=== PATIENT | female | born 1955 | race Caucasian/White ===

== ENCOUNTER 2016-12-01 13:17 | Emergency (ER) | payer OTHER ==
--- NOTE | 2016-12-01 14:21 | ER Document Report ---
HPI - HPI Patient complains to provider of: medication Onset: Last week Onset/Duration: Gradual Quality of pain: No pain Severity: Mild Pain Level: 1 Associated Symptoms: Other - out of adderall Similar symptoms previously: Yes Recently seen / treated by doctor: No - ROS ROS below otherwise negative: Yes - CONSTITUTIONAL Constitutional: DENIES: Fever, Chills - EENT EENT: DENIES: Sore Throat, Ear Pain, Nasal Drainage-Clear, Nasal Drainage- Purulent, Congestion, Eye problems - NEURO Neurology: DENIES: Headache, Weakness, Vision blurred, Dizzinesss / Vertigo - CARDIOVASCULAR Cardiovascular: DENIES: Chest pain - RESPIRATORY Respiratory: DENIES: Trouble Breathing, Coughing - GASTROINTESTINAL Gastrointestinal: DENIES: Abdominal Pain, Nausea, Patient vomiting, Diarrhea, Constipation, Black / Bloody Stools - URINARY Urinary: DENIES: Dysuria, Urgency, Frequency - REPRODUCTIVE Reproductive: DENIES: :, Postmenopausal, Abnormal bleeding / discharge - MUSCULOSKELETAL Musculoskeletal: DENIES: Extremity pain, Back Pain, Neck Pain, Swelling - DERM Skin Color: Normal Skin Problems: None Past Medical History - General Information source: Patient - Social History Smoking Status: Former Smoker Cigarette use (# per day): No Chew tobacco use (# tins/day): No Smoking Education Provided: No Frequency of alcohol use: None Drug Abuse: None Occupation: personal lines account executive Lives with: Parents Family History: Reviewed & Not Pertinent Patient has suicidal ideation: No Patient has homicidal ideation: No - Past Medical History Cardiac Medical History: Reports: None Pulmonary Medical History: Reports: Hx Bronchitis EENT Medical History: Reports: None Neurological Medical History: Reports: Hx Migraine Renal/ Medical History: Denies: Hx Peritoneal Dialysis Psychiatric Medical History: Reports: Hx Attention Deficit Hyperactivity Disorder Surgical Hx: Negative - Immunizations Hx Diphtheria, Pertussis, Tetanus Vaccination: Yes Vertical Provider Document - CONSTITUTIONAL Agree With Documented VS: Yes - Bp 169/109 Exam Limitations: No Limitations General Appearance: WD/WN, No Apparent Distress - INFECTION CONTROL TRAVEL OUTSIDE OF THE [place] IN LAST 30 DAYS: No - HEENT HEENT: Atraumatic, Normal ENT Exam, Normocephalic, PERRLA - NECK Neck: Normal Inspection, Supple - RESPIRATORY Respiratory: Breath Sounds Normal, No Respiratory Distress O2 Sat by Pulse Oximetry: 99 - CARDIOVASCULAR Cardiovascular: Regular Rate, Regular Rhythm - GI/ABDOMEN Gastrointestinal: Abdomen Soft, Abdomen Non-Tender - BACK Back: Normal Inspection - MUSCULOSKELETAL/EXTREMETIES Musculoskeletal/Extremeties: MAEW, FROM, Non-Tender - NEURO Level of Consciousness: Awake, Alert, Agitated Motor/Sensory: No Motor Deficit, No Sensory Deficit - DERM Integumentary: Warm, Dry, No Rash Course - Re-evaluation Re-evalutation: 12/01/16 21:11 Discussed assessment and request with Dr. Viera he stated that it would be okay to give her 6 of the Adderall 30s until she can find a primary doctor to follow-up with. Patient was written a prescription for 6 Adderall 30 1 daily. - Vital Signs Vital signs: Temp Pulse Resp BP Pulse Ox 97.7 F 83 22 H 169/109 H 99 12/01/16 13:43 12/01/16 13:43 12/01/16 13:43 12/01/16 13:43 12/01/16 13:43 Discharge - Discharge Clinical Impression: out of adderall Condition: Stable Disposition: HOME, SELF-CARE Instructions: Family Physicians / Practices Additional Instructions: You was seen today because you state you have run out of your Adderall and you cannot find a provider to refill your Adderall. We have discussed this with the space planner and you. She will work on trying to get to a primary doctor. I will write you for 6 of the Adderall and you need to make these spaced out and told you can get into see a primary doctor. FOLLOW-UP CARE: If you have been referred to a physician for follow-up care, call the physician s office for an appointment as you were instructed or within the next two days. If you experience worsening or a significant change in your symptoms, notify the physician immediately or return to the Emergency Department at any time for re-evaluation. Prescriptions: Dextroamphetamine/Amphetamine [Adderall 30 mg Tablet] 30 mg PO DAILY #6 tablet Forms: Elevated Blood Pressure
[2016-12-01 14:34] VITALS: BP 154/106
== END 2016-12-01 14:32 | disposition home or self-care (01) ==
LOC: ER 13:17
DX: Z76.0 Encounter for issue of repeat prescription (principal); Z87.891 Personal history of nicotine dependence; Z79.899 Other long term (current) drug therapy
CPT/HCPCS: 99283

== ENCOUNTER 2017-05-31 05:59 | Day surgery (SDC) | payer OTHER ==
[2017-05-24 10:42] LABS: APPEARANCE,URINE SLIGHTLY-CLOUDY; BILIRUBIN,URINE NEGATIVE (NEGATIVE); COLOR,URINE YELLOW; GLUCOSE, URINE NEGATIVE (NEGATIVE); KETONES,URINE NEGATIVE (NEGATIVE); LEUKOCYTE ESTERASE,URINE SMALL (NEGATIVE); NITRITE,URINE NEGATIVE (NEGATIVE); PROTEIN,URINE NEGATIVE (NEGATIVE); UROBILINOGEN,URINE NEGATIVE mg/dL (<2.0)
[2017-05-24 10:47] LABS: ABSOLUTE EOSINOPHILS # (AUTO) 0.1 10^3/uL (0.0-0.6); ABSOLUTE MONOCYTES (AUTO) 0.5 10^3/uL (0.1-1.4); ABSOLUTE NEUT (AUTO) 3.7 10^3/uL (1.7-8.2); BASOPHILS % (AUTO) 0.5 % (0-2); EOSINOPHILS % (AUTO) 1.5 % (0-6); HEMATOCRIT 39.7 % (36.0-47.0); HEMOGLOBIN 12.9 g/dL (12.0-15.5); LYMPHOCYTES % (AUTO) 31.7 % (13-45); MEAN CORPUSCULAR HEMOGLOBIN 30.1 pg (27.0-33.4); MEAN CORPUSCULAR HGB CONC 32.6 g/dL (32.0-36.0); MEAN CORPUSCULAR VOLUME 92 fl (80-97); PLATELET COUNT 268 10^3/uL (150-450); RED CELL DISTRIBUTION WIDTH 14.5 % (11.5-14.0); SEGMENTED NEUTROPHILS % (AUTO) 58.3 % (42-78); TOTAL CELLS COUNTED % (AUTO) 100 %; WHITE BLOOD COUNT 6.4 10^3/uL (4.0-10.5)
[2017-05-24 11:12] LABS: ANION GAP 9 (5-19); BLOOD UREA NITROGEN 14 mg/dL (7-20); CALCIUM 8.9 mg/dL (8.4-10.2); CARBON DIOXIDE 27 mmol/L (22-30); CHLORIDE 105 mmol/L (98-107); GLUCOSE 100 mg/dL (75-110); POTASSIUM 4.3 mmol/L (3.6-5.0); SODIUM 141.4 mmol/L (137-145)
--- NOTE | 2017-05-24 13:04 | EKG REPORT ---
SEVERITY:- NORMAL ECG - SINUS RHYTHM : Confirmed by: Napoleon Andrade MD 24-May-2017 13:03:33
[~2017-05-31 05:59] MED LIST: BUPIVACAINE HCL 0.5 % INJ/PF 30 ML SDV ONE; CEFAZOLIN 2 GM/D5W RTU 2 GM/50 ML RTUPB IV SCH; LACTATED RINGERS 1000 ML IV PRN; LIDOCAINE 0.5% INJ-PF (5 MG/ML) 50 ML SDV SUBCUT PRN
[2017-05-31] MEDS ORDERED: LIDOCAINE 2% INJ-PF (20 MG/ML) 10 ML AMPUL ONE (06:32)
[2017-05-31] MEDS ORDERED: FENTANYL CITRATE INJ/PF 100 MCG/2 ML AMPUL ONE ×2 (06:32)
[2017-05-31] MEDS ORDERED: DEXAMETHASONE SOD PHOSPHATE INJ 4 MG/1 ML VIAL ONE (06:33)
[2017-05-31] MEDS ORDERED: ONDANSETRON HCL INJ/PF 4 MG/2 ML SDV ONE (06:33)
[2017-05-31] MEDS ORDERED: PROPOFOL INJ 200 MG/20 ML VIAL IV ONE (06:33)
[2017-05-31] MEDS ORDERED: MIDAZOLAM 2 MG/2 ML INJ ONE (06:33)
[2017-05-31] MEDS ORDERED: ACETAMINOPHEN 0 ML IV ONE (06:33)
[2017-05-31] MEDS ORDERED: ACETAMINOPHEN 100 ML IV ONE (08:22)
[2017-05-31] MEDS ORDERED: MEPERIDINE HCL/PF INJ 25 MG/1 ML DISP.SYRIN IV PRN (08:40)
[2017-05-31] MEDS ORDERED: DIPHENHYDRAMINE HCL 50 MG/ML VIAL IV PRN (08:40)
[2017-05-31] MEDS ORDERED: MORPHINE SULFATE 10 MG/ML INJ IV PRN ×2 (08:40→09:48)
[2017-05-31] MEDS ORDERED: OXYCODONE-ACETAMINOPHEN 5-325 MG TABLET PO PRN ×3 (08:40→09:48)
[2017-05-31] MEDS ORDERED: ONDANSETRON HCL INJ/PF 4 MG/2 ML SDV IV PRN ×2 (08:40→09:48)
[2017-05-31] MEDS ORDERED: FENTANYL CITRATE INJ/PF 100 MCG/2 ML AMPUL IV PRN ×3 (08:40)
[2017-05-31] MEDS ORDERED: PROMETHAZINE HCL INJ 25 MG/1 ML VIAL IV PRN (08:40)
--- NOTE | 2017-05-31 09:45 | Operative Report ---
Operative Report DATE OF SURGERY: 05/31/17 PREOPERATIVE DIAGNOSIS: Left Thumb CMC Arthritis POSTOPERATIVE DIAGNOSIS: Same OPERATION: Left Thumb CMC Arthroplasty w/ Trapezial Resection, Ligament Reconstruction Tendon Interposition SURGEON: DARRELL TAYLOR 1ST BULLDOZER/LOADER/COMPACTOR/SCRAPER: JUDY LEE ANESTHESIA: GA COMPLICATIONS: None ESTIMATED BLOOD LOSS: <Minimal PROCEDURE: Indication for above procedure: 61-year-old female with long-standing history of left thumb arthritis and pain. We attempted conservative measures including anti-inflammatories, bracing and injections without resolution of patient's symptoms. At that point we discussed treatment options including operative versus nonoperative intervention. Risks and benefits were explained patient verbalized understanding consented for the procedure. Procedure In Detail: Patient was seen and evaluated in the preoperative holding area. The LEFT upper extremity was initialized and marked. Patient received 2g of Ancef IV for bacterial prophylaxis. Patient was taken back to the operative room where transferred to the operative table and placed under general anesthesia. Once they were adequately anesthetized and a nonsterile tourniquet was placed on the upper extremity. A surgical team debriefing was performed ensuring all instrumentation was available, the surgical procedure was discussed with possible concerns reviewed. The upper extremity was prepped with chlorhexidine and alcohol and draped in a sterile fashion. A timeout was done identifying correct patient, procedure and extremity everyone in attendance agree with this and verbalized no concerns. The extremity was exsanguinated the tourniquet was inflated to 200 mmHg. A longitudinal skin incision was made in line with the first dorsal compartment. I then meticulously dissected down to the interval of the APL and EPB identifying the superficial radial nerve branches which were retracted. I then identified the radial artery which was protected throughout the entirety of the case with a Sumner elevator. A T-shaped capsulotomy was made at the CMC joint of the thumb. A freer elevator was used to dariana out the CMC joint, fluoroscopy confirmed the thumb cmc joint placement. The capsule was released off of the trapezium circumferentially. The FCR insertion volarly was protected. Using a rongeur the trapezium was excised as one unit. I then removed any residual loose bodies and bone fragments. I then inspected the STT joint. There was no advanced degenerative changes of the STT joint. I then turned my attention to harvesting the FCR tendon. The FCR was identified and 2 transverse incisions were made. The entire FCR tendon was harvested. The tendon was then retrieved from the CMC joint of the thumb. The base of the thumb metacarpal was rongeured to allow for cancellous tendon healing. I tenolysed the FCR up to its insertion at the second metacarpal. Using a rongeur the 1st metacarpal base osteophytes were removed. Bone tunnels were created with the use of #1 PDS suture in a horizontal mattress fashion while my catalog library assistant held distraction at the thumb CMC joint. Once this was complete excellent stability of the CMC joint was achieved without evidence of subsidence. I fixated the remaining FCR tendon to the FCR tendon that remained attached the to second metacarpal with 3-0 Vicryl forming an anchovy. Fluoroscopy was then obtained which demonstrated good stability of my CMC arthroplasty without evidence of subsidence at rest or with stress. The wound was then copiously irrigated with normal saline. A peripheral vasculature is carefully coagulated with bipolar cautery The capsule was closed with interrupted 3-0 vicryl. Superficial radial nerve was once again inspected and protected during skin closure. Skin was closed with 4-0 Monocryl subcuticular suture reinforced with Dermabond and Steri-Strips.. The patient was placed in a thumb spica splint. Sponge counts, instrument counts and needle counts were correct. 20 mL of 0.5 marcaine was injected for postoperative pain control. Patient was extubated and transferred to the operative stretcher. There was no intraoperative complications patient tolerated procedure well with stable to PACU. Postoperative plan: Patient will continue the splint for 2 weeks. Patient will then be transitioned to a cast for an additional 2 weeks. They will then begin occupational therapy at 4 weeks and will be fitted for a thermoplastic splint at that time.
--- NOTE | 2017-05-31 09:45 | Discharge Summary ---
Discharge Summary (SDC) - Discharge Final Diagnosis: Left Thumb CMC Arthroplasty Date of Surgery: 05/31/17 Discharge Date: 05/31/17 Condition: Good Treatment or Instructions: Schedule Follow Up w/ Dr. Julio Chen @ [facility] to be seen in 10-14 days or as scheduled [place]: [place]: [place]: Ice and elevate Keep splint clean/dry/intact. If your fingers become numb please unwrap the Karl wrap but leave the splint in place, if the sensation does not return within 30 minutes please return to the emergency department. May begin finger range of motion attempting to make full fist. Please use ibuprofen (Motrin or Advil) 600-800 mg every 8 hours as needed for pain or fever DO NOT TAKE w/ TORADOL may use once TORADOL complete. You may also use acetaminophen (Tylenol) 1000 mg every 4-6 hours as needed for pain or fever. Please be aware that many medications contain acetaminophen, do not exceed a total of 1000 mg of acetaminophen every 6 hours. If ibuprofen and acetaminophen are not sufficient for your pain you may take the Percocet/[place]. Please be aware that the Percocet/[place] does contain Tylenol. Stool softener of choice when on pain medication. Prescriptions: Ketorolac Tromethamine [Toradol 10 mg Tablet] 10 mg PO Q8HP PRN #10 tablet PRN Reason: Oxycodone HCl/Acetaminophen [Percocet 5-325 mg Tablet] 1 - 2 tab PO ASDIR PRN # 40 tablet PRN Reason: Referrals: [facility] PA-C [Primary Care Provider] - Respiratory Treatments at Home: Deep Breathing/Coughing Discharge Activity: No Lifting Over 10 Pounds, No Lifting/Push/Pulling Report the Following to Your Physician Immediately: Fever over 101 Degrees, Unusual Bleeding, Redness, Swelling, Warmth, Increased Soreness
[2017-05-31] MEDS: FENTANYL CITRATE INJ/PF 100 MCG/2 ML AMPUL ONE ×3 (09:47→10:07)
[2017-05-31] MEDS ORDERED: RINGERS SOLUTION,LACTATED 1,000 ML IV PRN (09:48)
--- NOTE | 2017-05-31 10:57 | RADIOLOGY REPORT (SQ) ---
EXAM DESCRIPTION: NO CHG FLUORO; WRIST LEFT 3 VIEWS COMPLETED DATE/TIME: 05/31/2017 9:56 am REASON FOR STUDY: LT THUMB/CARPOMETACARPAL ARTHROPLASTY ASST WITH FLUORO IN OR M18.12 UNIL PRIMARY OSTEOARTH OF FIRST CARPOMETACARP JOINT, COMPARISON: None. FLUOROSCOPY TIME: 6 seconds 8 images saved to PACS. TECHNIQUE: Intra-operative images acquired during surgical procedure to evaluate progress. NUMBER OF IMAGES: 8 LIMITATIONS: None. FINDINGS: Surgical probe overlies the 1st carpometacarpal joint. IMPRESSION: IMAGE(S) OBTAINED DURING PROCEDURE. COMMENT: Quality ID 145: Final reports for procedures using fluoroscopy that document radiation exp osure indices, or exposure time and number of fluorographic images (if radiation exposure indices are not available) Please consult full operative report of the attending physician for description of the procedure. TECHNICAL DOCUMENTATION: JOB ID: [id number] [email or web address]- All Rights Reserved Reading location - IP/workstation name: [email or web address]
--- NOTE | 2017-05-31 10:57 | RADIOLOGY REPORT (SQ) ---
EXAM DESCRIPTION: NO CHG FLUORO; WRIST LEFT 3 VIEWS COMPLETED DATE/TIME: 05/31/2017 9:56 am REASON FOR STUDY: LT THUMB/CARPOMETACARPAL ARTHROPLASTY ASST WITH FLUORO IN OR M18.12 UNIL PRIMARY OSTEOARTH OF FIRST CARPOMETACARP JOINT, COMPARISON: None. FLUOROSCOPY TIME: 6 seconds 8 images saved to PACS. TECHNIQUE: Intra-operative images acquired during surgical procedure to evaluate progress. NUMBER OF IMAGES: 8 LIMITATIONS: None. FINDINGS: Surgical probe overlies the 1st carpometacarpal joint. IMPRESSION: IMAGE(S) OBTAINED DURING PROCEDURE. COMMENT: Quality ID 145: Final reports for procedures using fluoroscopy that document radiation exp osure indices, or exposure time and number of fluorographic images (if radiation exposure indices are not available) Please consult full operative report of the attending physician for description of the procedure. TECHNICAL DOCUMENTATION: JOB ID: [id number] [employer]- All Rights Reserved Reading location - IP/workstation name: [facility]
[2017-05-31] MEDS ORDERED: SUCCINYLCHOLINE CHLORIDE INJ 200 MG/10 ML VIAL ONE (12:13)
[2017-05-31 12:46] VITALS: BP 141/88
== END 2017-05-31 12:20 | disposition home or self-care (01) ==
LOC: OROUT 05:59
PROVIDERS: ATTEND Orthopaedic Surgery
PROC: 0RQT0ZZ Repair Left Carpometacarpal Joint, Open Approach (ICD-10-PCS; principal; 2017-05-31 08:00)
DX: M18.12 Unilateral primary osteoarthritis of first carpometacarpal joint, left hand (principal); D64.9 Anemia, unspecified; M19.90 Unspecified osteoarthritis, unspecified site; M18.9 Osteoarthritis of first carpometacarpal joint, unspecified; Z79.899 Other long term (current) drug therapy
CPT/HCPCS: 25447; 93005; 36415; 85025; 80048; 81001; 73110; 93010; J2250; J3490 ×2; J1100; J3010; J0330; J2405; J2704; J0690; J0131; 01830

== ENCOUNTER 2018-03-09 02:12 | Emergency (ER) | payer OTHER ==
[2018-03-09] MEDS ORDERED: LIDOCAINE 1%/EPINEPHRINE INJ 20 ML VIAL INJ ONE (02:38)
--- NOTE | 2018-03-09 03:26 | RADIOLOGY REPORT (SQ) ---
EXAM DESCRIPTION: CT HEAD WITHOUT IV CONTRAST COMPLETED DATE/TME: 03/09/2018 02:40 CLINICAL HISTORY: 62 years, Female, trauma. laceration on forehead COMPARISON: None. TECHNIQUE: 269 Images stored on PACS. All CT scanners at this facility use dose modulation, iterative reconstruction, and/or weight based dosing when appropriate to reduce radiation dose to as low as reasonably achievable (ALARA). [facility]: Dose Right [facility]: CareDose [facility]: Dose Right [facility]: Teradose 4D [facility]: Utel LIMITATIONS: None. FINDINGS: Motion artifact significantly limits the exam and degrades image quality. The globes appear intact. As visualized the paranasal sinuses and mastoid air cells are unremarkable. No displaced or depressed skull fracture. Right frontal scalp hematoma noted. Negative for acute intracranial hemorrhage. CT is limited for evaluation of acute infarct. No CT evidence for large or territorial acute infarct. No mass or midline shift. IMPRESSION: Motion artifact. Small right frontal scalp hematoma. TECHNICAL DOCUMENTATION: Quality ID # [id number]: Final reports with documentation of one or more dose reduction techniques (e.g., Automated exposure control, adjustment of the mA and/or kV according to patient size, use of iterative reconstruction technique) copyright 2010 [employer]- All Rights Reserved
--- NOTE | 2018-03-09 04:11 | ER Document Report ---
ED General - General Chief Complaint: Head Injury without LOC Stated Complaint: HEAD LACERATION Time Seen by Provider: 03/09/18 02:33 Notes: Patient is a 62-year-old female who presents after fall at home. She says she slipped and she is wearing socks and slipped on the floor. She does have a history of frequent falls. She says is because she has vertigo but the meclizine does not work. On exam patient obviously has a little bit of slurring of speech and seems very sedated as she keeps falling asleep during her discussion with me. I asked her if she is on any sedating medications and she informs me that tonight she took 2 Xanax 1 mg tablets, and Ambien 10 mg tablet, and 2 cyclobenzaprine tablets. She says she is prescribed these. She says she takes him to try to help her sleep. She says she is only supposed to take one Xanax tablet however it was not falling asleep and therefore took a second tablet. Patient is on any blood thinning medications. She did hit her head. She has a cut above her right eyebrow. She denies any other injuries. She denies neck or back pain. No pain in her extremities. TRAVEL OUTSIDE OF THE [place] IN LAST 30 DAYS: No - Related Data Allergies/Adverse Reactions: aspirin Allergy (Verified 05/24/17 09:07) Latex, Natural Rubber Allergy (Verified 05/24/17 09:00) Past Medical History - Social History Smoking Status: Never Smoker Chew tobacco use (# tins/day): No Frequency of alcohol use: None Drug Abuse: None Family History: Reviewed & Not Pertinent Patient has suicidal ideation: No Patient has homicidal ideation: No - Past Medical History Cardiac Medical History: Denies: Hx Coronary Artery Disease, Hx Heart Attack, Hx Hypertension Pulmonary Medical History: Denies: Hx Asthma, Hx Bronchitis, Hx COPD, Hx Pneumonia Neurological Medical History: Reports: Hx Migraine. Denies: Hx Cerebrovascular Accident, Hx Seizures Renal/ Medical History: Denies: Hx Peritoneal Dialysis Musculoskeletal Medical History: Reports Hx Arthritis Psychiatric Medical History: Reports: Hx Attention Deficit Hyperactivity Disorder - Immunizations Hx Diphtheria, Pertussis, Tetanus Vaccination: No Hx Pneumococcal Vaccination: 12/26/16 Review of Systems - Review of Systems Notes: My Normal Review Basic REVIEW OF SYSTEMS: CONSTITUTIONAL : Denies fever, chills, or sweats. Denies recent illness. CARDIOVASCULAR: Denies chest pain. RESPIRATORY: Denies cough, cold, or chest congestion. Denies shortness of breath, difficulty breathing, or wheezing. GASTROINTESTINAL: Denies abdominal pain. Denies nausea, vomiting, or diarrhea. Denies constipation. Last BM: MUSCULOSKELETAL: Denies neck or back pain or joint pain or swelling. SKIN: Denies rash or skin lesions. HEMATOLOGIC : Denies easy bruising or bleeding. NEUROLOGICAL: Denies altered mental status or loss of consciousness. mild headache. Denies weakness or paralysis or loss of use of either side. Denies problems with gait or speech. Denies sensory or motor loss. ALL OTHER SYSTEMS REVIEWED AND NEGATIVE. Physical Exam - Vital signs Vitals: Temp Pulse Resp BP Pulse Ox 97.9 F 84 18 143/88 H 99 03/09/18 02:16 03/09/18 02:16 03/09/18 02:16 03/09/18 02:16 03/09/18 02:16 - Notes Notes: General Appearance: Well nourished, somnolent, cooperative, no acute distress, no obvious discomfort. Vitals: reviewed, See vital signs table. Head: Small area of swelling over the right forehead. Small laceration is approximately 2 cm in length that extends into the right eyebrow. Eyes: PERRL, EOMI, Conjuctiva clear Mouth: No decreasd moisture Throat: No tonsillar inflammation, No airway obstruction, No lymphadenopathy Neck: Supple, no neck tenderness, No step-offs or deformities Back: Thoracic and lumbar spine is nontender to palpation. No step-offs or deformities. Lungs: No wheezing, No rales, No rhonci, No accessory muscle use, good air exchange bilaterally. Heart: Normal rate, Regular rythm, No murmur, no rub Abdomen: Normal BS, soft, No rigidity, No abdominal tenderness, No guarding, no rebound, no abdominal masses, no organomegaly Extremities: strength 5/5 in all extremities, good pulses in all extremities, no swelling or tenderness in the extremities, no edema. Skin: warm, dry, appropriate color, no rash Neuro: oriented x 3, sedated affect, responds appropriately to questions. Cranial nerves II through XII are intact with exception of slightly slurred speech which is consistent with her recent history of taken multiple sedating medications. She is able to move all 4 extremities without difficulty. Distal sensation is intact. No other focal neurologic deficits on exam. Course - Re-evaluation Re-evalutation: 03/09/18 04:14 Strongly suspect the patient's falls are a result of the sedate of medications that she is on. I informed her that she cannot take more than was prescribed for her. I even suggested that she actually cut back on some of her prescribed medications as I fear that she will continue to fall and likely end up with a more serious injury. I did discuss this with both her and her . I did thoroughly irrigate and clean the patient's laceration and suture closed. CT scan of the head was negative. Patient had no other areas of pain on exam. I feel patient is safe to be discharged home. She is to return to ER immediately if she has severe headache, vomiting, redness or swelling to the cut, or she feels unwell. Patient and agree with plan patient will be discharged home. Dictation of this chart was performed using voice recognition software; therefore, there may be some unintended grammatical errors. - Vital Signs Vital signs: Temp Pulse Resp BP Pulse Ox 97.9 F 84 18 143/88 H 96 03/09/18 02:16 03/09/18 02:16 03/09/18 02:16 03/09/18 02:16 03/09/18 03:06 Procedures - Laceration/Wound Repair forehead Wound length (cm): 2 Wound's Depth, Shape: Linear Anesthetic type: 1% Lidocaine w/epi Volume Anesthetic (mLs): 1 Wound explored: Clean Irrigated w/ Saline (mLs): 20 Wound Repaired With: Sutures Suture Size/Type: 6:0, Ethilon Number of Sutures: 3 Complications: No Discharge - Discharge Clinical Impression: Laceration Condition: Good Disposition: HOME, SELF-CARE Additional Instructions: LACERATION CARE: Your laceration has been sutured to keep the skin edges aligned during healing. The time of suture removal depends on the nature and location of your cut. Please follow the care instructions the doctor has outlined for you and return for further care, according to the schedule you've been given. Keep the wound and dressing clean. Unless you were told otherwise, you may shower daily, blotting the wound dry with a clean, unused towel. At other times, If the dressing gets wet or blood soaked, remove it and blot the wound dry, then reapply a new dressing. Unless you were instructed otherwise, dressings should be changed at least daily. If any signs of infection occur (swelling, redness, drainage, increasing tenderness, red streaks, tender lumps in the armpit or groin above the laceration, or fever), see the doctor immediately. SOAP CLEANSING: Gently wash the wound daily using a mild soap (like Ivory, Phisoderm, Neutrogena). Use warm water, rubbing gently until all debris, ooze, and crusting have been washed from the wound. Allow to dry briefly (about 10 minutes) after cleaning. Repeat this cleansing at least three times a day for the first two days and then once or twice a day. FOLLOW-UP CARE: Your sutures should be removed in __5___ days. To facilitate a timely removal of your sutures, you may return to the Emergency Department at [facility]. You do not need to call for an appointment, but the best time to come in for suture removal is early in the morning. If you have been referred to another physician for follow-up care, call that physicians office for an appointment as you were instructed. If you experience a significant change in your laceration, or if you are concerned there may be an infection (swelling, redness, drainage, increasing tenderness, red streaks, tender lumps in the armpit or groin above the laceration, or fever) , return to the Emergency Department immediately re-evaluation. Please return to the ER immediately if you have severe headaches, vomiting, or feel unwell. Please never take more of your medication than prescribed. The combination of Cyclobenzaprine, Ambien and Xanax is too sedation for you and will likely continue to cause you to fall. Please consider decreasing your Ambien dose to 5mg by cutting your tablet in half. Please follow up with your doctor for reevaluation in 5 days. Referrals: FAWN ST PA-C [Primary Care Provider] - 03/14/18
[2018-03-09 04:37] VITALS: BP 126/80
== END 2018-03-09 04:25 | disposition home or self-care (01) ==
LOC: ER 02:12
DX: S01.81XA Laceration without foreign body of other part of head, initial encounter (principal); S01.111A Laceration without foreign body of right eyelid and periocular area, initial encounter; W01.0XXA Fall on same level from slipping, tripping and stumbling without subsequent striking against object, initial encounter; Y92.009 Unspecified place in unspecified non-institutional (private) residence as the place of occurrence of the external cause; R42 Dizziness and giddiness; Z91.14 Patient's other noncompliance with medication regimen; R47.81 Slurred speech; Z79.899 Other long term (current) drug therapy; Z88.6 Allergy status to analgesic agent; Z91.040 Latex allergy status
CPT/HCPCS: 99284; 70450; 12011; J3490